=== PATIENT | female | born 1970 | race Two or more races ===

== ENCOUNTER 2020-09-20 06:00 | Day surgery (SDC) | payer OTHER | END 2020-09-20 10:55 | disposition home or self-care (01) | LOC: AMB-ENDOS 06:00 | PROVIDERS: ATTEND Surgery | DX: K62.89 Other specified diseases of anus and rectum (principal); Z20.822 Contact with and (suspected) exposure to COVID-19; Z12.11 Encounter for screening for malignant neoplasm of colon ==

== ENCOUNTER 2024-09-28 11:12 | Inpatient (IN) | payer OTHER ==
[~2024-09-28] VITALS: Ht 165.1 cm; Wt 59.0 kg
[2024-09-28] MEDS ORDERED: TRAMADOL HCL 50 MG TABLET PO ONE (12:00)
[2024-09-28 12:36] LABS: BASO % 0.3 % (0.1-1.2); EOS # 0.03 (0.04-0.54); EOS % 0.2 % (0.7-7.0); HEMATOCRIT 33.5 % (34.1-44.9); HEMOGLOBIN 11.2 g/dL (11.2-15.7); LYMPH # 2.35 (1.18-3.74); LYMPH % 18.5 % (19.3-53.1); MEAN CORPUSCULAR HEMOGLOBIN 30.9 pg (25.6-32.2); MONO # 1.13 (0.24-0.82); MONO % 8.9 % (4.7-12.5); NEUT # 9.12 (1.56-6.13); NEUT % 71.9 % (34.0-71.1); PLATELET COUNT 166 K/uL (163-369); RED BLOOD COUNT 3.62 M/uL (3.93-5.22); RED CELL DISTRIBUTION WIDTH 12.8 % (11.6-14.4)
[2024-09-28 13:00] LABS: ALBUMIN 3.3 gm/dL (3.4-5.0); BILIRUBIN TOTAL 0.7 mg/dL (0.3-1.2); CALCIUM 8.8 mg/dL (8.5-10.1); CREATININE SERUM 1.02 mg/dL (0.55-1.02); GFR 56.69; GLOBULINA 3.6 G/DL (2.4-3.5); POTASSIUM 3.63 mEq/L (3.5-5.1); TOTAL PROTEIN 6.9 gm/dL (6.4-8.2)
[2024-09-28 13:04] LABS: PH,URINE 6.5 (5.0-8.0); URINE APPEARANCE Clear; URINE BILIRRUBIN Negative (NEGATIVE); URINE BLOOD Negative; URINE COLOR Yellow; URINE GLUCOSE Negative (NEGATIVE); URINE KETONE Negative (NEGATIVE); URINE LEUKOCYTE Negative; URINE NITRATE Negative; URINE PROTEIN Negative (NEGATIVE); URINE UROBILINOGEN 0.2 E.U./dl
[2024-09-28 13:08] LABS: URINE BACTERIA 292.4 uL (0.0-1933); URINE EPITHELIAL CELLS 7.7 uL (0.0-38.8); URINE RBC 5.1 uL (0.0-20.8); URINE WBC 3.6 uL (0.0-23.2)
[2024-09-28 13:50] LABS: URINE CAST 0.14 uL (0.0-1.40)
[2024-09-28] MEDS ORDERED: 0.9 % SODIUM CHLORIDE 1,000 ML IV STA (16:47)
[2024-09-28] MEDS ORDERED: PIPERACILLIN/TAZOBACTAM SODIUM 3.375 GM VIAL IV STA (16:48)
[2024-09-28] MEDS ORDERED: MORPHINE SULFATE 4 MG/ML VIAL IV STA (16:49)
[2024-09-28] MEDS ORDERED: HYOSCYAMINE SULFATE 0.125 MG TAB.SUBL ONE (16:50)
[2024-09-28] MEDS ORDERED: PIPERACILLIN/TAZOBACTAM SODIUM 3.375 GM VIAL IV ONE (16:50)
[2024-09-28] MEDS ORDERED: HYOSCYAMINE SULFATE 0.125 MG TAB.SUBL SL ONE (17:00)
[2024-09-28] MEDS ORDERED: PIPERACILLIN/TAZOBACTAM SODIUM 3.375 GM in DEXTROSE 5 % IN WATER 100 ML IV SCH (18:26)
[2024-09-28] MEDS ORDERED: FAMOTIDINE/PF 20 MG in 0.9 % SODIUM CHLORIDE 8 ML IV PUSH SCH (18:26)
[2024-09-28] MEDS ORDERED: ONDANSETRON HCL 4 MG in 0.9 % SODIUM CHLORIDE 50 ML IV PRN (18:30)
[2024-09-28] MEDS ORDERED: 0.9 % SODIUM CHLORIDE 1,000 ML IV SCH (18:30)
[2024-09-28] MEDS ORDERED: MORPHINE SULFATE 4 MG/ML CARTRIDGE IV PRN (18:30)
[2024-09-28] MEDS ORDERED: FAMOTIDINE/PF 20 MG/2 ML VIAL ONE (19:53)
[2024-09-28 20:47] LABS: INR 1.05; PARTIAL THROMBOPLASTIN TIME 28.5 SECONDS (22.0-34.0); PROTHROMBIN TIME 11.4 SECONDS (9.0-11.5)
[2024-09-28 22:53] VITALS: BP 117/76; O2SAT 99
[2024-09-29 01:19] VITALS: BP 107/67; O2SAT 100
[2024-09-29 08:00] VITALS: BP 118/63; O2SAT 99
[2024-09-29 16:00] VITALS: BP 95/60; O2SAT 97
[2024-09-30 00:30] VITALS: BP 117/68; O2SAT 96
[2024-09-30 08:00] VITALS: BP 123/64; O2SAT 97
[2024-09-30] MEDS ORDERED: ACETAMINOPHEN 500 MG GEL..CAP PO STA (12:58)
[2024-09-30] MEDS ORDERED: ACETAMINOPHEN 500 MG GEL..CAP PO PRN (13:00)
[2024-09-30 16:45] VITALS: BP 128/79; O2SAT 100
[2024-10-01 00:51] VITALS: BP 126/77; O2SAT 95
[2024-10-01 07:46] LABS: BILIRUBIN TOTAL 0.69 mg/dL (0.3-1.2); CALCIUM 8.4 mg/dL (8.5-10.1); GLOBULINA 3.3 G/DL (2.4-3.5); PHOSPHOROUS 3.7 mg/dL (2.5-4.9); POTASSIUM 3.67 mEq/L (3.5-5.1); TOTAL PROTEIN 6.3 gm/dL (6.4-8.2)
[2024-10-01 07:53] LABS: C-REACTIVE PROTEIN 4.18 MG/DL (0.00-0.29)
[2024-10-01 07:56] LABS: EOS # 0.16 (0.04-0.54); EOS % 3.3 % (0.7-7.0); HEMATOCRIT 32.3 % (34.1-44.9); HEMOGLOBIN 10.8 g/dL (11.2-15.7); LYMPH # 1.76 (1.18-3.74); LYMPH % 36.7 % (19.3-53.1); MEAN CORPUSCULAR HEMOGLOBIN 30.3 pg (25.6-32.2); MONO # 0.32 (0.24-0.82); MONO % 6.7 % (4.7-12.5); NEUT % 52.1 % (34.0-71.1); PLATELET COUNT 179 K/uL (163-369); RED BLOOD COUNT 3.57 M/uL (3.93-5.22); RED CELL DISTRIBUTION WIDTH 12.5 % (11.6-14.4)
[2024-10-01 08:00] VITALS: BP 135/77; O2SAT 98
[2024-10-01] MEDS ORDERED: LACTOBACILLUS ACIDOPHILUS 1 CAP CAP PO SCH (09:00)
[2024-10-01 16:00] VITALS: BP 126/76; O2SAT 97
[2024-10-02 01:06] VITALS: BP 138/83; O2SAT 97
[2024-10-02 08:45] VITALS: BP 119/76; O2SAT 99
[2024-10-02 16:00] VITALS: BP 116/75; O2SAT 98
[2024-10-03] VITALS: BP 125/75; O2SAT 95
[2024-10-03 09:12] VITALS: BP 121/76; O2SAT 98
[2024-10-03] MEDS ORDERED: DIATRIZOATE MEGLUMINE, SODIUM 30 ML BOTTLE PO NR (12:45)
[2024-10-03 16:42] VITALS: BP 127/79; O2SAT 98
[2024-10-04 01:33] VITALS: BP 132/74; O2SAT 100
[2024-10-04 09:03] VITALS: BP 134/84
[2024-10-04 16:00] VITALS: BP 137/84; O2SAT 97
== END 2024-10-04 18:47 | disposition home or self-care (01) | DRG 392 ==
LOC: ER 11:27 → SURH 18:39 → SEC-K 18:39 → SURH 19:47
PROVIDERS: General Practice; Internal Medicine Infectious Disease; ADMIT Internal Medicine; ATTEND Internal Medicine
PROC: BU4CZZZ Ultrasonography of Uterus and Ovaries (ICD-10-PCS; principal; 2024-09-28)
PROC: BW21YZZ Computerized Tomography (CT Scan) of Abdomen and Pelvis using Other Contrast (ICD-10-PCS; 2024-09-28)
PROC: BW21ZZZ Computerized Tomography (CT Scan) of Abdomen and Pelvis (ICD-10-PCS; 2024-10-03)
DX: K57.32 Diverticulitis of large intestine without perforation or abscess without bleeding (principal)